=== PATIENT | female | born 1945 | race Caucasian/White ===

== ENCOUNTER → 2019-01-27 | Day surgery (SDC) | payer MEDICARE ==
[~2019-01-27] MED LIST: Acetaminophen TAB* 325 MG PO PRN; Buffered Lidocaine 1% SYRIN* 1 ML/SYRINGE INTRADERM ONE; Famotidine IV* 10 MG/ML 2 ML (20 mg) ONE; Lactated Ringers 1000 ML Bag* 1,000 ML IV SCH; Lidocaine 2% PF * 5 ML VIAL ONE; Midazolam* 1 MG/ML 2 ML VIAL (2 MG) ONE; Naloxone* 0.4 MG/ML 1 ML VIAL IV PRN; Ondansetron INJ* 2 MG/ML VIAL IV PRN; Ondansetron INJ* 2 MG/ML VIAL ONE; Propofol* 10 MG/ML 20 ML BTL ONE; fentaNYL* 50 MCG/ML 2 ML VIAL (100 MCG VIAL) ONE
[2019-01-27 12:27] VITALS: BP 114/66
--- NOTE | 2019-01-27 13:45 | PRO ---
CC: Rimma Reyes MD* PROCEDURE REPORT: DATE OF PROCEDURE: 01/27/19 PROCEDURE: Colonoscopy with jumbo biopsy polypectomy x4. REFERRING PROVIDER: Rimma Reyes MD INDICATION: Positive FIT test. Last colonoscopy was in 2005. There were no polyps, although she was noted to have a tortuous colon. She was uncomfortable during the colonoscopy, and she recalls being told she developed a colonic spasm. Referred for follow-up colonoscopy under anesthesia. MEDICATIONS GIVEN: By Anesthesia. DESCRIPTION OF PROCEDURE: Full disclosure of risks was reviewed with the patient as detailed on the consent form. The patient was placed in the left lateral decubitus position and monitored with continuous pulse oximetry, capnography, interval blood pressure monitoring, and direct observation. After anorectal examination was performed, the adult colonoscope was inserted into the rectum and slowly advanced to the level of the terminal ileum. Complete views of the cecum were obtained including the medial wall between the IC valve and the appendiceal orifice. Quality of the prep was good. Photodocumentation of landmarks obtained. Careful inspection was made as the colonoscope was withdrawn. Retroflexion was performed in the rectum. Findings and interventions are described below. FINDINGS: Anorectal exam was unremarkable. Scope was inserted into the rectum and slowly advanced forward. Procedure was moderately challenging due to a tortuous colon with sense of restriction as scope was advanced. Scope was able to advance to the cecum. Once in the cecum, the terminal ileum was intubated. Ileal mucosa was normal in appearance x3 cm. Scope was then withdrawn back into the cecum and then throughout the length of the colon. There was a 3 mm polyp removed from the hepatic flexure with jumbo biopsy forceps. There was a 3 mm polyp in the descending colon removed with jumbo biopsy forceps. There were 2 polyps measuring 3 to 4 mm in the sigmoid colon, which were removed with jumbo biopsy forceps. There was no significant diverticulosis. Retroflexion in the rectum revealed small internal hemorrhoids. Scope was then withdrawn from the patient. The patient tolerated the procedure well and was recovered in the GI recovery area. IMPRESSION: 1. Complete colonoscopy to the terminal ileum. Tortuous colon. 2. Four tiny polyps. 3. Internal hemorrhoids. FOLLOWUP: 1. Await pathology. 2. Can likely discontinue colon cancer screening at this point as the polyps were diminutive. Will discuss with the patient pending final results. Thank you very much for this referral. [id number]/[facility] #: [id number] [facility]ITALTigist
== END | disposition home or self-care (01) ==
LOC: ENDO 08:07
PROVIDERS: ATTEND Internal Medicine Gastroenterology
DX: D12.3 Benign neoplasm of transverse colon (principal); K63.5 Polyp of colon; K64.8 Other hemorrhoids; K63.89 Other specified diseases of intestine; R19.5 Other fecal abnormalities; E78.5 Hyperlipidemia, unspecified; Z87.891 Personal history of nicotine dependence; Z79.899 Other long term (current) drug therapy
CPT/HCPCS: 88305; J2250; J2405; J2704; J3010